=== PATIENT | female | born 1955 | race Caucasian/White ===

== ENCOUNTER 2017-08-09 10:32 | Observation (INO) | payer BC ==
[2017-08-09] MEDS ORDERED: ASPIRIN 81 MG PO STA (11:05)
[2017-08-09] MEDS ORDERED: ONDANSETRON 4 MG/2 ML VIAL IVP STA (11:05)
[2017-08-09] MEDS ORDERED: NITROGLYCERIN OINT 1 INCH/GM PACKET TOPICAL STA (11:05)
[2017-08-09] MEDS ORDERED: oxyCODONE-APAP 7.5-325MG 1 EACH TAB PO STA (11:06)
[2017-08-09 11:29] LABS: Basophils # (A) 0.1 k/uL (0-0.2); Basophils % (A) 1 %; Eosinophils # (A) 0.4 k/uL (0-0.7); Eosinophils % (A) 4 %; HCT 42.4 % (34.0-46.0); HGB 14.6 gm/dL (11.4-16.0); Lymphocytes # (A) 2.2 k/uL (1.0-4.8); Lymphocytes % (A) 22 %; MCH 28.2 pg (25.0-35.0); MCHC 34.4 g/dL (31.0-37.0); Mean Platelet Volume 7.6; Monocytes # (A) 0.6 k/uL (0-1.0); Monocytes % (A) 6 %; Neutrophils # (A) 6.7 k/uL (1.3-7.7); Neutrophils % (A) 66 %; Platelet Count 290 k/uL (150-450); RBC 5.17 m/uL (3.80-5.40); RDW 14.8 % (11.5-15.5); WBC 10.2 k/uL (3.8-10.6)
--- NOTE | 2017-08-09 11:30 | XR ---
EXAMINATION TYPE: XR chest 2V DATE OF EXAM: 08/09/2017 COMPARISON: NONE TECHNIQUE: PA and lateral views submitted. HISTORY: Chest pain FINDINGS: The lungs are clear and there is no pneumothorax, pleural effusion, or focal pneumonia. There is a coarsened interstitium. Arthropathy of the shoulders. Atherosclerotic change aorta. Degenerative oswald ge of the spine. Heart size within normal limits. IMPRESSION: 1. Coarsened interstitium could be seen with chronic interstitial lung disease or bronchitis. Correla te clinically.
[2017-08-09 11:38] LABS: ALT 49 U/L (9-52); AST 41 U/L (14-36); Albumin 4.3 g/dL (3.5-5.0); Alkaline Phosphatase 91 U/L (38-126); Amylase 61 U/L (30-110); Anion Gap 12 mmol/L; Blood Urea Nitrogen 16 mg/dL (7-17); Calcium 9.7 mg/dL (8.4-10.2); Carbon Dioxide 26 mmol/L (22-30); Chloride 106 mmol/L (98-107); Glucose 108 mg/dL (74-99); Lipase 120 U/L (23-300); Magnesium 1.9 mg/dL (1.6-2.3); Potassium 4.4 mmol/L (3.5-5.1); Sodium 144 mmol/L (137-145); Total Bilirubin 0.4 mg/dL (0.2-1.3); Total Protein 7.3 g/dL (6.3-8.2)
[2017-08-09 11:41] LABS: D-Dimer 1.15 mg/L FEU (<0.60); Partial Thromboplastin Time 24.6 sec (22.0-30.0)
--- NOTE | 2017-08-09 11:49 | ED ---
Chest Pain HPI - General Chief Complaint: Chest Pain Stated Complaint: Chest pain Time Seen by Provider: 08/09/17 10:45 Source: patient Mode of arrival: wheelchair Limitations: no limitations - History of Present Illness Initial Comments: Extremities years old female complaining about right-sided chest pain chest pain started at 745 this morning and she still has chest pain is off-and-on its is 6/10 right now is worse with deep breaths she denies any trauma to the chest pain she denies any history of pulmonary embolism and DVT she does have a history of diabetes hyperlipidemia and hypertension she had a multiple surgeries status post appendectomy status post cholecystectomy she does have a very long history of for tobacco use almost 2043 she denies any alcohol use and family history significant for dad had a heart disease and the mom had ovarian cancer. She denies any abdominal pain no frequency urgency dysuria no symptoms of TIA or CVA - Related Data Home Medications Medication Instructions Recorded Confirmed Lisinopril 40 mg PO DAILY 08/09/17 08/09/17 Multivit-Min/FA/Lycopen/Lutein 1 tab PO DAILY 08/09/17 08/09/17 [Centrum Silver Tablet] [place]oomis-3 Fatty Acids/Fish Oil [Fish 1 cap PO DAILY 08/09/17 08/09/17 Oil 1,000 mg Softgel] Tumeric 1 tab PO DAILY 08/09/17 08/09/17 Ubidecarenone [Co Q-10] 100 mg PO DAILY 08/09/17 08/09/17 metFORMIN HCL [Glucophage] 500 mg PO DAILY 08/09/17 08/09/17 Allergies Allergy/AdvReac Type Severity Reaction Status Date / Time morphine Allergy Rash/Hives Verified 08/09/17 11:29 hydrocodone [From [place]] AdvReac Nausea & Verified 08/09/17 11:29 Vomiting Review of Systems ROS Statement: Those systems with pertinent positive or pertinent negative responses have been documented in the HPI. ROS Other: All systems not noted in ROS Statement are negative. EKG Findings - EKG Comments: EKG Findings:: EKG is sinus tachycardia ventricular rate is 114 UT interval is 140 QRS duration is 86 QT/QTc is 328/452 review of this EKG reveals a T-wave inversion in lead [address] elevation noticed R no ST depression noticed in the other leads Past Medical History Past Medical History: Diabetes Mellitus, Hyperlipidemia, Hypertension History of Any Multi-Drug Resistant Organisms: None Reported Past Surgical History: Appendectomy, Back Surgery, Cholecystectomy, Hysterectomy , Orthopedic Surgery, Tonsillectomy, Tubal Ligation Additional Past Surgical History / Comment(s): Bilat total knee replacements, eye surgery, bilat elbow replacemets Past Psychological History: No Psychological Hx Reported Smoking Status: Current every day smoker Past Alcohol Use History: Rare Past Drug Use History: None Reported General Exam - General Exam Comments Initial Comments: General: The patient is awake and alert, in mild distress from the right-sided chest pain Skin: Skin is warm and dry and no rashes or lesions are noted. Eye: Pupils are equal, round and reactive to light, extra-ocular movements are intact; there is normal conjunctiva bilaterally. Ears, nose, mouth and throat: There are moist mucous membranes and no oral lesions. Neck: The neck is supple, there is no tenderness or JVD. Cardiovascular: There is a regular rate and rhythm. No murmur, rub or gallop is appreciated. Noticed tachycardia Respiratory: To auscultation bilateral, moderate to severe COPD, she is tender to palpation under her over the fifth and sixth rib mid clavicular area on the right side Gastrointestinal: Mildly tender in epigastric area Back: There is no tenderness to palpation in the midline. There is no obvious deformity. Musculoskeletal: Normal ROM, no tenderness, There is no pedal edema. There is no calf tenderness or swelling. No cords were appreciated. Neurological: CN II-XII intact, Cranial nerves III through XII are intact. There are no obvious motor or sensory deficits. Coordination appears grossly intact. Speech is normal. Psychiatric: Cooperative, appropriate mood & affect, normal judgment. Limitations: no limitations Course Vital Signs 08/09/17 08/09/17 08/09/17 10:37 11:28 12:41 Temperature 98.0 F Pulse Rate 120 H 108 H 101 H Respiratory 20 20 20 Rate Blood Pressure 165/79 161/90 144/72 O2 Sat by Pulse 98 97 97 Oximetry Critical Care Time Total Critical Care Time: 30 Critical Care Time: On arrival patient was quite distressed with the right-sided chest pain, EKG was done and reviewed noticed he was tachycardic cardiac monitoring was started she was also tachycardic and to Be pressure was elevated as well she has multiple risk factors chest x-ray ruled out any pneumonia troponin EKG are unremarkable she continued to have a pain in the right side of the chest and worse with deep breaths d-dimer was elevated we followed up with the CT angiogenesis CT angiogram is unremarkable but considering she is 62 and she has some smoked for a long time and also noticed that on his CT and J chest and noticed some calcification of the coronaries she would need to come in for at least 3 sets of cardiac markers she will see oil well engineer when she is in the hospital and further evaluation and management be done by oil well engineer for has coronary artery disease is concerned she be admitted as a chest pain Disposition Clinical Impression: Chest pain, Tachycardia, Pleuritic chest pain, COPD exacerbation Disposition: ADMITTED IP TO THIS HOSP Condition: Good Referrals: Stewart Izquierdo MD [Primary Care Provider] - 1-2 days
[2017-08-09 11:50] LABS: Creatine Kinase 63 U/L (30-135)
[2017-08-09] MEDS ORDERED: RX INFO: IV CONTRAST WAS GIVEN 1 EACH MISC MISCELLANE PRN (11:58)
[2017-08-09 12:03] LABS: Creatine Kinase MB 0.7 ng/mL (0.0-2.4); Troponin I <0.012 ng/mL (0.000-0.034)
--- NOTE | 2017-08-09 13:35 | CT ---
EXAMINATION TYPE: CT angio chest DATE OF EXAM: 08/09/2017 COMPARISON: Radiograph same day HISTORY: 62-year-old female complains of right side chest pain. TECHNIQUE: Contiguous axial scanning of the chest performed with IV Contrast, patient injected with 1 00 mL of Omnipaque 350. Coronal/sagittal MIP reconstructions performed. CT DLP: 363.7 mGycm Automated exposure control for dose reduction was used. FINDINGS: The heart is normal size without pericardial effusion. Coronary vessel calcifications are present and are marker for coronary artery disease. Aorta normal caliber with mild atherosclerotic arch calcifications and conventional arch vessel branc thierno anatomy. Satisfactory opacification of the pulmonary arterial system without evidence for pulmonary embolus. No thoracic lymphadenopathy. Hazy densities dependently in the lungs suggesting generalized areas of atelectasis. There is mild ce ntrilobular emphysema and mild diffuse bronchial wall thickening. Small hiatal hernia. Diffuse low-attenuation of the hepatic parenchyma with cholecystectomy clips. Di rect takeoff of the left gastric artery directly from the aorta. Subcentimeter hypodense lesions with in the kidneys too small for accurate CT characterization, probable cysts. Colonic diverticulosis. Bones: Mild to moderate degenerative disc disease throughout the thoracic spine. IMPRESSION: 1. NO EVIDENCE FOR PULMONARY EMBOLUS. 2. COPD WITH MILD EMPHYSEMA. 3. SMALL HIATAL HERNIA, MARKED HEPATIC STEATOSIS, AND COLONIC DIVERTICULOSIS.
[2017-08-09] MEDS ORDERED: NITROGLYCERIN SL TABS 0.4 MG TAB SUBLINGUAL PRN (13:45)
[2017-08-09 14:36] VITALS: RESP 16
[2017-08-09 17:26] LABS: Glucose,Whole Blood 132 mg/dL (75-99)
[2017-08-09 17:47] LABS: Creatine Kinase 50 U/L (30-135)
[2017-08-09 17:57] LABS: Creatine Kinase MB 0.6 ng/mL (0.0-2.4); Troponin I <0.012 ng/mL (0.000-0.034)
[2017-08-09 19:54] VITALS: BP 134/66; PULSE 100; TEMP 97.9
[2017-08-09 20:35] LABS: Glucose,Whole Blood 217 mg/dL (75-99)
[2017-08-09] MEDS ORDERED: NAPROXEN 250 MG TAB PO SCH (20:57)
[2017-08-09] MEDS ORDERED: ATORVASTATIN 40 MG TAB PO SCH (21:00)
[2017-08-09] MEDS ORDERED: NICOTINE 21MG/24HR PATCH TRANSDERM SCH (21:15)
--- NOTE | 2017-08-09 21:42 | HP ---
HISTORY AND PHYSICAL HISTORY AND PHYSICAL AND DISCHARGE SUMMARY: DATE OF ADMISSION: August 09, 2017. DATE OF DISCHARGE: August 09, 2017. PRESENTING COMPLAINT: Right chest pain. HISTORY OF PRESENTING COMPLAINT: This is a pleasant 62 -year-old patient who follows with Dr. Gerald Izquierdo out of [facility]. Chronic stable medical conditions include diabetes, hyperlipidemia, hypertension, osteoarthritis. The patient is a smoker. The patient started off with a new cough about 4-5 days ago, noncongested, dry. Some nasal stuffiness. No fever. Yesterday patient started off with right-sided localized chest pain in one spot in the anterior axillary line just below the right breast, localized. No radiation. Slightly worse with deep breath and tender to palpation. No left precordial pain. No dizziness. No lightheadedness. No sweating. Denies any prior cardiac history. Patient is rather active. REVIEW OF SYSTEMS: Constitutional: Tired. HEENT as above. Respiratory as above. Cardiovascular: No precordial pain. Gastrointestinal none. Genitourinary: None. MUSCULOSKELETAL: Aches and pains in different joints. Dermatological and hematologic, lymphatic none. Psychiatry none. Neurological none. PAST MEDICAL HISTORY: Of diabetes, hypertension, hyperlipidemia, osteoarthritis. Thyroid nodules and shingles. PAST SURGICAL HISTORY: Appendectomy, back surgery, cholecystectomy, hysterectomy, tonsillectomy, tubal ligation, bilateral total knee replacement, eye surgery, blepharoplasty, bilateral elbow replacement, right ovary and fallopian tube removed. SOCIAL HISTORY: The patient is . Smokes a pack a day for close to 44 years. Works as a medical equipment repair technician. Lives with her . Alcohol rarely. FAMILY HISTORY: Ovarian cancer. HOME MEDICATIONS: 1. Glucophage 100 mg p.o. daily. 2. COQ10 100 mg p.o. daily. 3. Turmeric 1 tab p.o. daily. 4. Fish oil 1 tab capsule p.o. daily. 5. Multivitamin 1 capsule p.o. daily. 6. Lisinopril 40 mg p.o. daily. ALLERGIES: TO MORPHINE AND NORCO causing nausea vomiting. PHYSICAL EXAMINATION: Temperature 97.9, pulse 100, respirations 16, blood pressure 130/66, pulse ox 94% on room air. General appearance: Average built, sitting up not in distress. Comfortable. Eyes pupils are equal. Conjunctivae normal. HEENT external appearance of nose and ears normal. Oral cavity normal. Neck: JVD not raised. Mass not palpable. Respiratory effort normal. Lungs fair entry. Cardiovascular 1st and 2nd sounds normal. No edema. ABDOMEN: Soft, nontender. Liver and spleen not palpable. Lymphatics: No lymph nodes palpable in the neck and axillae. PSYCHIATRY: Alert and oriented times three. Mood and affect normal. Neurological: Pupils equal. Cranial nerves grossly intact. Power and sensation grossly intact. Musculoskeletal: Patient has significant tenderness in the anterior axillary line below the breast at 1 localized point that she nearly catches and sits up when I push on it. INVESTIGATIONS: White count 10.2, potassium 4.4, BUN 16, creatinine 0.62. Troponin x2 negative. EKG sinus rhythm. Chest CTA shows diverticulosis and hepatic steatosis. No PE. ASSESSMENT: 1. Acute right chest pain. Pleuritic in nature with localized tenderness in 1 spot, definitely appears to be musculoskeletal with no cardiac features. 2. Chronic nicotine dependence. Patient is a cigarette smoker. 3. Diabetes mellitus type 2 on oral hypoglycemic. 4. Hyperlipidemia. 5. Hypertension. 6. Hepatic steatosis. 7. Colonic diverticulosis asymptomatic. PLAN: Patient started on naproxen. Care was discussed with the patient. The patient can be discharged home. Home medications are to be resumed. The patient should follow up with Dr. Gerald Izquierdo in 3 days. Smoking cessation counseling was done with the patient. She was told that she may be starting to have the beginnings of emphysema and she should use a nicotine patch and maybe another Nicorette gum. The patient will be discharged home. Copy Dr. Gerald Izquierdo. MMODL / IJN: [id number] /
[2017-08-10] MEDS ORDERED: NON-FORMULARY DRUG (Omega-3 Fatty Acids/Fish Oil [Fish Oil 1,000 Mg Softgel] 1 CAP) PO SCH (09:00)
[2017-08-10] MEDS ORDERED: ASPIRIN 325 MG TAB PO SCH (09:00)
[2017-08-10] MEDS ORDERED: LISINOPRIL 10 MG TAB PO SCH (09:00)
[2017-08-10] MEDS ORDERED: metFORMIN 500 MG TAB PO SCH (09:00)
[2017-08-10] MEDS ORDERED: MULTIVITAMINS, THERA 1 EACH TAB PO SCH (12:00)
== END 2017-08-09 22:30 | disposition home or self-care (01) ==
LOC: EC 10:32 → 3OBS 13:46
PROVIDERS: ADMIT Hospitalist; ATTEND Hospitalist
DX: R07.89 Other chest pain (principal); E11.9 Type 2 diabetes mellitus without complications; I10 Essential (primary) hypertension; J44.1 Chronic obstructive pulmonary disease with (acute) exacerbation; F17.210 Nicotine dependence, cigarettes, uncomplicated; E78.5 Hyperlipidemia, unspecified; K57.30 Diverticulosis of large intestine without perforation or abscess without bleeding; K76.0 Fatty (change of) liver, not elsewhere classified; R79.89 Other specified abnormal findings of blood chemistry; M19.90 Unspecified osteoarthritis, unspecified site; E04.2 Nontoxic multinodular goiter; Z79.84 Long term (current) use of oral hypoglycemic drugs; Z79.899 Other long term (current) drug therapy; Z88.5 Allergy status to narcotic agent; Z96.653 Presence of artificial knee joint, bilateral; Z86.19 Personal history of other infectious and parasitic diseases; Z90.721 Acquired absence of ovaries, unilateral; Z90.79 Acquired absence of other genital organ(s); Z90.49 Acquired absence of other specified parts of digestive tract; Z90.710 Acquired absence of both cervix and uterus; Z80.41 Family history of malignant neoplasm of ovary; Z82.49 Family history of ischemic heart disease and other diseases of the circulatory system
CPT/HCPCS: 99291 ×2; 96374 ×2; 36415; 93005; 85379; 80053; 82150; 82550; 82553; 83690; 83735; 84484; 85025; 85610; 85730; 71046; 71275; G0378; Q9967; J2405